=== PATIENT | male | born 1960 | race Two or more races ===

== ENCOUNTER → 2024-09-02 | Outpatient (CLI) | payer MEDICAID, SELFPAY ==
--- NOTE | 2024-09-02 07:30 | XR_ITS ---
Examination: CT lumbar spine, without contrast. 2-D sagittal reconstructions. 2-D coronal reconstructions. 3-D reconstructions. Date and time of exam:September 02, 2024 0817 hours INDICATIONS: Diagnosis spinal stenosis, lumbar region without neurogenic findings, low back pain one year CTDI: vol (mGy):51.7 DLP: (mGycm):1596 Technique: Multiple 1.25 mm axial sections of the lumbar spine without intravenous contrast have been obtained. 2-D sagittal and coronal reconstructions have been obtained. 3-D reconstructions have been obtained. Low dose protocols were performed. One or more of the following dose reduction techniques were used; automated exposure control, adjustment of the mA and/or KV according to patient size, use of iterative reconstruction technique. Findings: Moderate osteopenia No lumbar vertebral body compression fracture Mild to moderate disc narrowing L5-S1 Lumbar pedicles, laminae, transverse and posterior spinous processes intact L5-S1 3 mm calcified central lumbar disc bulge with mild right L5 ganglionic compression L4-L5 severe overall spinal stenosis, 10 mm central lumbar disc bulge, facet arthropathy and thickening of ligamentum flavum with severe bilateral L4 ganglionic compression L3-L4 3 mm central lumbar disc bulge L2-L3 5 mm central lumbar disc bulge L1-L2 2 mm central lumbar disc bulge IMPRESSION: L4-L5 severe overall spinal stenosis including severe bilateral L4 ganglionic compression Additional spinal stenosis as above Consider repeat MRI lumbar spine without contrast follow-up
== END | disposition home or self-care (01) ==
PROVIDERS: PCP Family Medicine; Referring Provider Physician Assistant Medical; Visit Provider Physician Assistant Medical
DX: M48.061 Spinal stenosis, lumbar region without neurogenic claudication (principal); G95.20 Unspecified cord compression
CPT/HCPCS: 72131

== ENCOUNTER → 2024-09-03 | Outpatient (CLI) | payer MEDICAID, SELFPAY ==
--- NOTE | 2024-09-03 12:20 | XR_ITS ---
Examination: Bone densitometry Date and time of exam:September 03, 1999 2557 hours INDICATIONS: 63-year-old male with age-related osteoporosis diagnosis Technique: Lumbar spine and hip total bone mineralization values of an calculated. Peak reference and age match control results have been displayed. Findings: Lumbar spine total bone mineralization is1.148 gm/cm2. This is 0.5 standard deviations above peak reference. This is 1.2 standard deviations above age-matched controls. Hip total bone mineralization is 1.268 gm/cm2 This is 1.6 standard deviations above peak reference. This is 2.1 standard deviations above age-matched controls Impression: There is normal mineralization based on lumbar spine measurements. There is normal mineralization based on hip measurements
== END | disposition home or self-care (01) ==
PROVIDERS: PCP Specialist; Referring Provider Specialist; Visit Provider Specialist
DX: M81.0 Age-related osteoporosis without current pathological fracture (principal)
CPT/HCPCS: 77080

== ENCOUNTER → 2025-05-07 | Outpatient (CLI) | payer MEDICAID, SELFPAY ==
--- NOTE | 2025-05-07 10:15 | XR_ITS ---
Examination: MRI sacrum, without contrast Date and time of exam: May 07, 2025 10:05 AM INDICATIONS: Sacral pain lower back pain numbness and paresthesias in the legs 10 years Technique: Multiple axial sagittal and coronal images of the sacral segments have been obtained with the Siemens high-resolution 1.5 Renée MRI scanner. Images obtained include T2-weighted fat-suppressed sagittal sections, TR 3500, TE 46, T2 weighted coronal fat suppressed images, TR 3050, TE 84, T2-weighted transverse fat suppressed images, TR 3260, TE 63, proton density transverse images, TR 4720 TE 46, and T1 weighted coronal images, TR 560, TE 13. Findings: Adequate alignment lumbar lumbar and sacral segments L4-L5 4 mm central lumbar disc bulge Symmetrical sacral foramina No edema about the sacroiliac joints No scalloping or bone erosion involving the posterior margins of the sacrococcygeal segments No soft tissue edema or mass IMPRESSION: L4-L5 4 mm central lumbar disc bulge
--- NOTE | 2025-05-07 12:00 | XR_ITS ---
Examination: MRI lumbar spine without contrast Date and time of exam: May 07, 2025, 1122 hours, comparison June 30, 2024 INDICATIONS: Low back pain radiating down both legs weakness in both legs 10 years, worse the last 5 years Technique: Multiple MRI axial and sagittal sections lumbar spine. Sagittal T2-weighted images, TR 3500, TE 118 T1 weighted transverse sections, TR 688 T8.5, T2-weighted sagittal sections T1 weighted sagittal sections TR 621, TE 30 T2 axial sections, TR 4, 190, TE 84. Findings: Adequate alignment lumbar vertebral bodies on the lateral view. No lumbar fracture. Diffuse lumbar disc desiccation Mild disc narrowing L5-S1 No spondylolisthesis L5-S1 no disc protrusion L4-L5 severe overall spinal stenosis, 5 mm central lumbar disc bulge, facet arthropathy and thickening of ligamentum flavum the disc bulge extending to the foraminal regions with moderate bilateral L4 ganglionic compression L3-L4 severe overall spinal stenosis, 5 mm central lumbar disc bulge, facet arthropathy and thickening of ligamenta flava, disc bulges extending to the foraminal region with moderate left mild right L3 ganglionic compression L2-L3 no disc protrusion L1-L2 no disc protrusion IMPRESSION: L4-L5, L3-L4 severe overall spinal stenosis as above
== END | disposition home or self-care (01) ==
LOC: SMRI 10:03
PROVIDERS: PCP Physician Assistant; Referring Provider Physician Assistant; Visit Provider Physician Assistant
DX: M48.061 Spinal stenosis, lumbar region without neurogenic claudication (principal); M51.360 Other intervertebral disc degeneration, lumbar region with discogenic back pain only
CPT/HCPCS: 72148; 72195

== ENCOUNTER 2025-07-11 20:43 | Emergency (ER) | payer MEDICAID, SELFPAY ==
[2025-07-11 20:44] VITALS: BP 159/92; PULSE 71; RESP 18; TEMP 37; O2SAT 97; BMI 33.5
[2025-07-11 20:52] VITALS: PULSE 72; RESP 18; O2SAT 97
--- NOTE | 2025-07-11 21:19 | XR_ITS ---
Examination: CT brain head without contrast. 2-D sagittal coronal reconstructions Date and time of exam: July 11, 2025, 11:18 p.m. INDICATIONS: Headaches nausea blurred vision today CTDI: vol (mGy): 55.6 DLP: (mGycm): 1161 Technique: Multiple CT axial sections of the brain have been obtained, 5 mm slice thickness. Contrast has not been administered. 2-D sagittal, coronal reconstructions have been obtained Low dose protocols were performed. One or more of the following dose reduction techniques were used; automated exposure control, adjustment of the mA and/or KV according to patient size, use of iterative reconstruction technique. Findings: No significant ventricular enlargement. Intra-axial or extra-axial hemorrhage density is not seen. No mass effect or midline shift Basal cisterns are not remarkable. Fourth ventricle is midline. Cranial vault intact. Impression: Negative for acute hemorrhage, mass effect or midline shift Advise clinical correlation and follow-up accordingly
--- NOTE | 2025-07-11 21:20 | PD.EDRME ---
Rapid Medical Screening Exam RME Arrival date/time: 07/11/25 20:43 This is a case of 64-year-old male with no medical history came in in the emergency room due to headache and vomiting for 1 day denies any injury no trauma but with mild blurring of vision persistence of the symptoms this patient decided to start consult here in the emergency room Chief Complaint: Headache Time Seen by Provider: 07/11/25 21:19 Vital signs: Vital Signs Temperature 98.6 F 07/11/25 20:44 Pulse Rate 71 07/11/25 20:44 Respiratory Rate 18 07/11/25 20:44 Blood Pressure 159/92 H 07/11/25 20:44 Pulse Oximetry (%) 97 07/11/25 20:44 Oxygen Delivery Method Room Air 07/11/25 20:44 Exam: PERRL EOM intact normal conjunctiva no palpable edema neurological exam awake alert oriented x 4 no focal deficit GCS 15/15 steady gait Clinical Impression: Headache
[2025-07-11 21:58] LABS: Basophils # (Auto) 0.0 Thou/mm3 (0.0-0.2); Basophils % (Auto) 0 % (0-2.5); Eosinophils # (Auto) 0.0 Thou/mm3 (0.0-0.5); Eosinophils % (Auto) 0 % (0-10); Hematocrit 41.5 % (41.0-53.0); Hemoglobin 13.5 g/dL (13.5-16.0); Immature Granulocytes Auto 0.02 Thou/mm3 (0.00-0.00); Lymphocytes # (Auto) 0.8 Thou/mm3 (1.0-4.8); Lymphocytes % (Auto) 10 % (10-50); Mean Corpuscular HGB Conc 32.5 g/dl (31.0-37.0); Mean Corpuscular Hemoglobin 25.8 pg (25.0-35.0); Mean Corpuscular Volume 79 fL (80-100); Monocytes # (Auto) 0.5 Thou/mm3 (0.0-0.8); Monocytes % (Auto) 6 % (0-12); Neutrophils # (Auto) 6.3 Thou/mm3 (1.8-7.7); Neutrophils % (Auto) 82 % (37-80); Nucleated Red Blood Cell # 0.00 Thou/mm3 (0.00-0.00); Nucleated Red Blood Cell % 0 /100 WBC (0); Platelet Count 210 Thou/mm3 (140-440); RDW Standard Deviation 60.5 fL (35.1-43.9); Red Blood Count 5.23 Miln/mm3 (4.50-5.90); White Blood Count 7.6 Thou/mm3 (3.8-10.6)
[2025-07-11 22:05] LABS: Alanine Aminotransferase 13 U/L (10-49); Albumin, Serum 4.9 gm/dL (3.4-4.8); Albumin/Globulin Ratio 1.5 (1.2-2.2); Alkaline Phosphatase 96 U/L (46-116); Anion Gap 11 (7-16); Aspartate Amino Transferase 18 U/L (0-34); BUN/Creatinine Ratio 14 Ratio (12-20); Bilirubin,Total 0.7 mg/dL (0.3-1.2); Blood Urea Nitrogen 11 mg/dL (9-23); Calcium 9.6 mg/dL (8.3-10.6); Calcium (Corrected) 9.6 mg/dL (8.5-10.1); Carbon Dioxide 26.5 mMol/L (20.0-31.0); Chloride 94 mMol/L (98-107); Creatinine (Component) 0.8 mg/dL (0.6-1.3); Estimated Creatinine Clearance 117.1 mL/min (>60); Globulin 3.2 gm/dL (2.3-3.5); Glucose 126 mg/dL (74-106); Osmolality,Calculated 264 (275-295); Potassium 4.3 mMol/L (3.4-5.1); Sodium 131 mMol/L (136-145); Total Protein 8.1 gm/dL (5.7-8.2); eGFR > 60 See Note
[2025-07-11 23:37] VITALS: BP 167/102; PULSE 70; RESP 15; TEMP 36.5; O2SAT 99
[2025-07-11 23:50] LABS: Collection Type, Urine Clean Catch; Squamous Epithelial Cell,Urine 0 /hpf (0-5)
[2025-07-11 23:57] LABS: Bilirubin,Urine Negative (Negative); Blood,Urine Negative (Negative); Clarity,Urine Clear (Clear/Hazy); Color,Urine Lt-Yellow (Lt Yel-Yel); Glucose, Urine Negative (Negative); Ketones,Urine 4+ (Negative); Leukocyte Esterase,Urine Negative (Negative); Nitrite,Urine Negative (Negative); PH,Urine 5.5 (5.0-7.0); Protein,Urine Trace (Neg - Trace); RBC,Urine 1 /hpf (0-3); Specific Gravity,Urine 1.025 (1.001-1.035); Urobilinogen,Urine Negative mg/dL (0.0-1.0); WBC,Urine 1 /hpf (0-5)
--- NOTE | 2025-07-12 01:04 | EDNOTE_ITS ---
ED Headache RME/HPI General Chief Complaint: Headache Stated Complaint: HEADACHE Time Seen by Provider: 07/11/25 21:19 Arrival date/time: 07/11/25 20:43 RME / HPI RME / HPI Narrative: 07/11/25 20:43 This is a case of 64-year-old male with no medical history came in in the emergency room due to headache and vomiting for 1 day denies any injury no trauma but with mild blurring of vision persistence of the symptoms this patient decided to start consult here in the emergency room Dr. Gonzales?s Main ED Evaluation: 64yo male presents to the ED for a chief complaint of a bitemporal headache x yesterday morning. No radiation or migration. Patient denies any falls or injuries. Denies any N/V/D, fever, chills, dizziness, lightheadedness, or any other associated symptoms. Denies any history of similar symptoms. NKA. Related Data Previous Rx's ?Medication ?Instructions ?Recorded naproxen 500 mg tablet (Naprosyn) 500 mg PO BID PRN pa in #20 tabs 07/12/25 Review of Systems Review of Systems Systems Reviewed: All systems reviewed, normal except as documented Past Medical History Past Medical History CARDIAC: Negative Congestive Heart Failure RESPIRATORY: Negative Chronic Obstructive Pulmonary Disease (COPD) GENITOURINARY: Negative Renal Disease ENDOCRINE: Negative Diabetes Mellitus Type 1 or Diabetes Mellitus Type 2 Social History SMOKING STATUS: Never smoker ED Exam Narrative Physical exam: Generally patient is alert and in no obvious distress, head is normocephalic atraumatic, head shows patient have palpable temporal artery pulses bilaterally. Eyes pupils equal round reactive to light. Neck shows no nuchal rigidity, heart regular rate and rhythm, lungs clear to auscultation equal bilaterally, abdomen soft nondistended and nontender. Neurologic exam Christina Coma Scale is 15 without focal motor deficit. Course Quality Measures none Orders Category Date Time Status CT head/brain wo con Stat Exams 07/11/25 21:19 Completed CBC Stat Lab 07/11/25 21:34 Completed Comprehensive Metabolic Panel Stat Lab 07/11/25 21:34 Completed Urinalysis Stat Lab 07/11/25 23:37 Completed Ketorolac Inj [Toradol Inj] Med 07/12/25 01:13 Pending 60 mg IM X1 ONE Vital Signs Vital signs: Vital Signs Temperature 98.6 F 07/11/25 20:44 Pulse Rate 71 07/11/25 20:44 Respiratory Rate 18 07/11/25 20:44 Blood Pressure 159/92 H 07/11/25 20:44 Pulse Oximetry (%) 97 07/11/25 20:44 Oxygen Delivery Method Room Air 07/11/25 20:44 Headache MDM Narrative MDM Narrative:: Scribe Attestation: 07/12/25 - Catalina Del Rio am scribing for and in the presence of Dr. Gonzales. Prior to my evaluation a CAT scan of the brain was ordered which was negative. Blood work is unremarkable. Patient will receive Toradol 60 mg IM and discharged on Naprosyn to be taken as prescribed. I do not believe this patient have temporal arteritis. Patient is to follow-up with his primary care physician. Return to ER as needed or if condition worsens. Patient data External records reviewed:: [facility] previous records (Per chart review, patient has no relevant previous ED visits.) Clinical information provided by:: patient Social determinants that could affect healthcare access:: none Patient has the following chronic illnesses:: none How is presenting disease/condition affected by chronic disease/condition?: no chronic disease Evaluation data The following diagnostics were reviewed and interpreted by me:: lab results and radiology exam(s) Lab and/or radiology exams considered but not ordered:: none Interpretation Summary: [facility] Report Signed Patient: JESSICA JIMENEZ Record#: [id number] Birthdate: 1960 Age/Sex: 64 / M Location: [facility] Attending Dr: Ordering Physician: Esther Morse Date of Service: 07/11/25 Procedure(s): CT head/brain wo con Accession Number(s): [id number] cc: Peter Curiel; Asim Carrillo MD; Esther Morse~ Examination: CT brain head without contrast. 2-D sagittal coronal reconstructions Date and time of exam: July 11, 2025, 11:18 p.m. INDICATIONS: Headaches nausea blurred vision today CTDI: vol (mGy): 55.6 DLP: (mGycm): 1161 Technique: Multiple CT axial sections of the brain have been obtained, 5 mm slice thickness. Contrast has not been administered. 2-D sagittal, coronal reconstructions have been obtained Low dose protocols were performed. One or more of the following dose reduction techniques were used; automated exposure control, adjustment of the mA and/or KV according to patient size, use of iterative reconstruction technique. Findings: No significant ventricular enlargement. Intra-axial or extra-axial hemorrhage density is not seen. No mass effect or midline shift Basal cisterns are not remarkable. Fourth ventricle is midline. Cranial vault intact. Impression: Negative for acute hemorrhage, mass effect or midline shift Advise clinical correlation and follow-up accordingly Dictated By: Asim Carrillo MD Signed By: <Electronically signed by Asim Carrillo MD in OV> 07/11/25 4669 Medications / Prescriptions Medications or Prescriptions considered but not ordered:: none Medication administrations:: Medication Administration History Ketorolac Tromethamine (Ketorolac Inj 60 Mg/2 Ml Vial) 60 mg IM X1 ONE Stop: 07/12/25 01:14 none Consultations Consultation(s) initiated? (list below): No Diagnosis Differential diagnosis headache: other (See MDM) Most likely diagnosis given after review of the tests above:: see clinical impression below Admission Indicated Admission indicated?: not indicated Admission Request Was there a request for admission?: No Disposition Plan Disposition Plan: Discharge Discharge Attestation Discharge Attestation: The patient and all family members were given an opportunity to ask questions and understood the discharge instructions. Discharge instructions specifically effects, indications for sooner follow up or return to the emergency department, and the expected course of current diagnosis. Patient condition: Stable Discharge Plan Plan Patient Disposition: HOME (Self Care) Prescriptions/Referrals Prescriptions/Med Rec: New naproxen [Naprosyn] 500 mg tablet 500 mg PO BID PRN (Reason: pain) Qty: 20 0RF Referrals: Peter Sanders [Primary Care Provider] - In 1 week Problem List Clinical Impression: Headache Patient/Caregiver Discharge Instructions Education Materials: Self-Care for Headaches Additional Instructions: Medication as prescribed. Follow-up with your doctor as needed for further treatment and evaluation. Print Language: Croatian Stand Alone Forms: [facility] Award Info., Patient Portal Info Letter
[2025-07-12 01:59] VITALS: BP 159/98; PULSE 63; RESP 16; TEMP 36.5; O2SAT 98
[2025-07-12 02:10] VITALS: TEMP 36.6
[2025-07-12] MEDS: KETOROLAC INJ 60 MG/2 ML VIAL IM (02:10)
[2025-07-12 02:22] VITALS: BP 154/86; PULSE 83; RESP 18; TEMP 36.1; O2SAT 96
== END 2025-07-12 02:29 | disposition home or self-care (01) ==
PROVIDERS: Nurse Practitioner Family; Emergency Provider Emergency Medicine; PCP Physician Assistant
DX: R51.9 Headache, unspecified (principal); H53.8 Other visual disturbances; R11.2 Nausea with vomiting, unspecified
CPT/HCPCS: 36415; 70450; 80053; 81001; 85025; 96372; 99283; J1885